=== PATIENT | female | born 1990 | race Caucasian/White ===

== ENCOUNTER 2021-02-21 01:29 | Emergency (ER) | payer BC ==
--- NOTE | 2021-02-21 01:40 | EDM.PDOC ---
ED HPI GENERAL MEDICAL PROBLEM - General Chief Complaint: Behavioral/Psych Stated Complaint: [facility] Time Seen by Provider: 02/21/21 01:35 - History of Present Illness INITIAL COMMENTS - FREE TEXT/NARRATIVE: 30-year-old female brought in by EMS after an intentional overdose. Patient apparently got in a argument with her after she had been drinking she then took unknown quantities of Seroquel Trintellix. Not much more history is obtainable the patient does not answer questions and is fairly well sedated at the time of arrival. Upon arrival her vital signs are stable she is oxygenating well. GCS 11. - Related Data Allergies Allergy/AdvReac Type Severity Reaction Status Date / Time No Known Allergies Allergy Verified 02/21/21 03:02 Home Meds: Home Meds . [Unable to Verify Home Med List] 02/21/21 [History] ED ROS GENERAL - Review of Systems Review Of Systems: See Below Reason Not Obtained: Patient will not follow commands or answer questions ED EXAM, GENERAL - Physical Exam Exam: See Below Exam Limited By: Intoxication General Appearance: Lethargic (Patient awakens but falls right back to sleep and takes a little bit of effort to get her to wake up GCS 11.) Eye Exam: Bilateral Eye: Normal Inspection, PERRL Ears: Normal External Exam, Normal Canal, Hearing Grossly Normal, Normal TMs Throat/Mouth: Normal Inspection, Normal Lips, Normal Gums, Normal Oropharynx (Gag reflex appears intact), No Airway Compromise, Other (Mucous membrane appears dry) Head: Atraumatic, Normocephalic Neck: Normal Inspection, Supple. No: Lymphadenopathy (L), Lymphadenopathy (R) Respiratory/Chest: No Respiratory Distress, Lungs Clear, Normal Breath Sounds Cardiovascular: Normal Peripheral Pulses, Regular Rate, Rhythm, No Edema GI/Abdominal: Normal Bowel Sounds, Soft, Non-Tender (No obvious tenderness) Extremities: Normal Inspection, No Pedal Edema #1 Interpretation EKG Date: 02/21/21 Time: 01:35 Rhythm: NSR Rate (Beats/Min): 62 [place]: Normal P-Wave: Present QRS: Normal ST-T: Other (Near isoelectric T waves in the inferior leads) QT: Normal Comparison: NA - No Prior EKG EKG Interpretation Comments: Borderline EKG #2 Interpretation EKG Date: 02/21/21 Time: 03:45 Rhythm: Other (Wide-complex tachycardia) Rate (Beats/Min): 152 P-Wave: Absent (Most likely in T wave) QRS: Wide (Suspect aberrant conduction V tach not excluded) ST-T: Other (Disconcordant change) QT: Prolonged Comparison: Change From Previous EKG (Change from earlier this morning she has developed a regular wide-complex tachycardia) EKG Interpretation Comments: Abnormal EKG #3 Interpretation EKG Date: 02/21/21 Time: 04:19 Rhythm: NSR Rate (Beats/Min): 82 [place]: LAD-Left [place] Deviation P-Wave: Present QRS: Wide (Aberrent conduction likely) ST-T: Other (Disconcordant changes) Comparison: Change From Previous EKG (Rate has slowed from #2 obvious sinus rhythm) EKG Interpretation Comments: Abnormal #4 Interpretation EKG Date: 02/21/21 Time: 06:45 (Following 2 Amps of bicarb) Rhythm: NSR Rate (Beats/Min): 96 [place]: LAD-Left [place] Deviation P-Wave: Present QRS: Wide (No improvement in wide-complex with bicarb) ST-T: Other (Disconcordant changes) ID/PQ Interval: Prolonged Comparison: No Change (No significant changes with #3) EKG Interpretation Comments: Abnormal Course - Vital Signs Last Recorded V/S: Last Vital Signs Temp 36.6 C 02/21/21 01:46 Pulse 66 02/21/21 01:46 Resp 16 02/21/21 01:46 BP 110/62 02/21/21 01:46 Pulse Ox 96 02/21/21 01:46 - Orders/Labs/Meds Orders: Active Orders 24 hr Category Date Time Status Head wo Cont [CT] Stat Exams 02/21/21 05:31 Taken Labs: Laboratory Tests 02/21/21 02/21/21 02/21/21 Range/Units 01:38 01:38 01:38 WBC (3.98-10.04) K/mm3 RBC (3.98-5.22) M/mm3 Hgb (11.2-15.7) gm/dl Hct (34.1-44.9) % MCV (79.4-94.8) fl MCH (25.6-32.2) pg MCHC (32.2-35.5) g/dl RDW Std Deviation (36.4-46.3) fL Plt Count (182-369) K/mm3 MPV (9.4-12.3) fl Neut % (Auto) (34.0-71.1) % Lymph % (Auto) (19.3-51.7) % [place] % (Auto) (4.7-12.5) % Eos % (Auto) (0.7-5.8) Baso % (Auto) (0.1-1.2) % Neut # (Auto) (1.56-6.13) K/mm3 Lymph # (Auto) (1.18-3.74) K/mm3 [place] # (Auto) (0.24-0.36) K/mm3 Eos # (Auto) (0.04-0.36) K/mm3 Baso # (Auto) (0.01-0.08) K/mm3 PT (9.7-12.0) SECONDS INR Puncture Site ABG pH (7.35-7.45) ABG pCO2 (35.0-45.0) mmHg ABG pO2 (80.0-100.0) mmHg ABG HCO3 (22.0-26.0) meq/L ABG O2 Saturation (96.0-97.0) % ABG Base Excess (-2-2.0) A-a Gradient mmHg O2 Delivery Device FiO2 (21.00-100.00) % Sodium (136-145) mEq/L Potassium (3.5-5.1) mEq/L Chloride (98-107) mEq/L Carbon Dioxide (21-32) mEq/L Anion Gap (5-15) BUN (7-18) mg/dL Creatinine (0.55-1.02) mg/dL Est Cr Clr Drug Dosing Estimated GFR (MDRD) (>60) mL/min BUN/Creatinine Ratio (14-18) Glucose (70-99) mg/dL Calcium (8.5-10.1) mg/dL Magnesium (1.8-2.4) mg/dL Total Bilirubin (0.2-1.0) mg/dL AST (15-37) U/L ALT (14-59) U/L Alkaline Phosphatase (46-116) U/L Troponin I (0.00-0.056) ng/mL Total Protein (6.4-8.2) g/dl Albumin (3.4-5.0) g/dl Globulin gm/dL Albumin/Globulin Ratio (1-2) TSH 3rd Generation (0.358-3.74) uIU/mL Urine Color Yellow (Yellow) Urine Appearance Slt cloudy H (Clear) Urine pH 6.0 (5.0-8.0) Ur Specific [place] > or = 1.030 (1.005-1.030) Urine Protein 3+ H (Negative) Urine Glucose (UA) Negative (Negative) Urine Ketones 1+ H (Negative) Urine Occult Blood Negative (Negative) Urine Nitrite Negative (Negative) Urine Bilirubin Negative (Negative) Urine Urobilinogen 0.2 (0.2-1.0) Ur Leukocyte Esterase Negative (Negative) U Hyaline Cast (Auto) 20-30 H (0-5) /lpf Urine RBC 0-5 (0-5) /hpf Urine WBC 5-10 H (0-5) /hpf Ur Squamous Epith Cells 0-5 (0-5) /hpf Urine Bacteria Few (FEW) /hpf Fine Granular Casts 40-50 H (0-5) /lpf Urine Mucus Few (FEW) /hpf Urine HCG, Qual Negative (NEGATIVE) Salicylates (2.8-20) mg/dL Urine Opiates Screen Negative (LJSRXS=188) Ur Buprenorphine Scrn Negative (CUTOFF=10) Ur Oxycodone Screen Negative (XQA0XO=050) Urine Methadone Screen Negative (LSPIVC=041) Ur Propoxyphene Screen Negative (YGXSQK=989) Acetaminophen (10-30) ug/mL Ur Barbiturates Screen Negative (TGIOPA=053) Ur Tricyclics Screen Presumptive positive H (OEKXRI=651) Ur Phencyclidine Scrn Negative (CUTOFF=25) Ur Amphetamine Screen Negative (GLUUDM=293) U Methamphetamines Scrn Negative (SWLLUA=412) U Benzodiazepines Scrn Negative (GLLUXL=929) U Cocaine Metab Screen Negative (NGVSJA=054) U Marijuana (THC) Screen Negative (CUTOFF=50) Ethyl Alcohol (0.00) gm% SARS-CoV-2 RNA (ALINA) (NEGATIVE) 02/21/21 02/21/21 02/21/21 Range/Units 01:38 01:57 01:57 WBC (3.98-10.04) K/mm3 RBC (3.98-5.22) M/mm3 Hgb (11.2-15.7) gm/dl Hct (34.1-44.9) % MCV (79.4-94.8) fl MCH (25.6-32.2) pg MCHC (32.2-35.5) g/dl RDW Std Deviation (36.4-46.3) fL Plt Count (182-369) K/mm3 MPV (9.4-12.3) fl Neut % (Auto) (34.0-71.1) % Lymph % (Auto) (19.3-51.7) % [place] % (Auto) (4.7-12.5) % Eos % (Auto) (0.7-5.8) Baso % (Auto) (0.1-1.2) % Neut # (Auto) (1.56-6.13) K/mm3 Lymph # (Auto) (1.18-3.74) K/mm3 [place] # (Auto) (0.24-0.36) K/mm3 Eos # (Auto) (0.04-0.36) K/mm3 Baso # (Auto) (0.01-0.08) K/mm3 PT 10.3 (9.7-12.0) SECONDS INR 0.93 Puncture Site ABG pH (7.35-7.45) ABG pCO2 (35.0-45.0) mmHg ABG pO2 (80.0-100.0) mmHg ABG HCO3 (22.0-26.0) meq/L ABG O2 Saturation (96.0-97.0) % ABG Base Excess (-2-2.0) A-a Gradient mmHg O2 Delivery Device FiO2 (21.00-100.00) % Sodium 139 (136-145) mEq/L Potassium 2.8 L (3.5-5.1) mEq/L Chloride 103 (98-107) mEq/L Carbon Dioxide 23 (21-32) mEq/L Anion Gap 15.8 H (5-15) BUN 15 (7-18) mg/dL Creatinine 1.0 (0.55-1.02) mg/dL Est Cr Clr Drug Dosing TNP Estimated GFR (MDRD) > 60 (>60) mL/min BUN/Creatinine Ratio 15.0 (14-18) Glucose 132 H (70-99) mg/dL Calcium 8.8 (8.5-10.1) mg/dL Magnesium 1.8 (1.8-2.4) mg/dL Total Bilirubin 0.2 (0.2-1.0) mg/dL AST 16 (15-37) U/L ALT 26 (14-59) U/L Alkaline Phosphatase 43 L (46-116) U/L Troponin I (0.00-0.056) ng/mL Total Protein 7.0 (6.4-8.2) g/dl Albumin 4.0 (3.4-5.0) g/dl Globulin 3.0 gm/dL Albumin/Globulin Ratio 1.3 (1-2) TSH 3rd Generation 1.163 (0.358-3.74) uIU/mL Urine Color (Yellow) Urine Appearance (Clear) Urine pH (5.0-8.0) Ur Specific [place] (1.005-1.030) Urine Protein (Negative) Urine Glucose (UA) (Negative) Urine Ketones (Negative) Urine Occult Blood (Negative) Urine Nitrite (Negative) Urine Bilirubin (Negative) Urine Urobilinogen (0.2-1.0) Ur Leukocyte Esterase (Negative) U Hyaline Cast (Auto) (0-5) /lpf Urine RBC (0-5) /hpf Urine WBC (0-5) /hpf Ur Squamous Epith Cells (0-5) /hpf Urine Bacteria (FEW) /hpf Fine Granular Casts (0-5) /lpf Urine Mucus (FEW) /hpf Urine HCG, Qual (NEGATIVE) Salicylates (2.8-20) mg/dL Urine Opiates Screen (OIFFXQ=876) Ur Buprenorphine Scrn (CUTOFF=10) Ur Oxycodone Screen (BNA5WQ=023) Urine Methadone Screen (UEURTX=812) Ur Propoxyphene Screen (YDHHOI=546) Acetaminophen 0 L (10-30) ug/mL Ur Barbiturates Screen (ERNIXF=672) Ur Tricyclics Screen (RYQZSB=145) Ur Phencyclidine Scrn (CUTOFF=25) Ur Amphetamine Screen (YUVLOP=996) U Methamphetamines Scrn (BRKPNM=482) U Benzodiazepines Scrn (IGACGI=122) U Cocaine Metab Screen (OEERSS=811) U Marijuana (THC) Screen (CUTOFF=50) Ethyl Alcohol 0.09 (0.00) gm% SARS-CoV-2 RNA (LAINA) Negative (NEGATIVE) 02/21/21 02/21/21 02/21/21 Range/Units 01:57 01:57 02:38 WBC 6.70 (3.98-10.04) K/mm3 RBC 4.57 (3.98-5.22) M/mm3 Hgb 13.9 (11.2-15.7) gm/dl Hct 40.9 (34.1-44.9) % MCV 89.5 (79.4-94.8) fl MCH 30.4 (25.6-32.2) pg MCHC 34.0 (32.2-35.5) g/dl RDW Std Deviation 40.8 (36.4-46.3) fL Plt Count 208 (182-369) K/mm3 MPV 10.2 (9.4-12.3) fl Neut % (Auto) 76.0 H (34.0-71.1) % Lymph % (Auto) 18.2 L (19.3-51.7) % [place] % (Auto) 3.4 L (4.7-12.5) % Eos % (Auto) 1.6 (0.7-5.8) Baso % (Auto) 0.7 (0.1-1.2) % Neut # (Auto) 5.08 (1.56-6.13) K/mm3 Lymph # (Auto) 1.22 (1.18-3.74) K/mm3 [place] # (Auto) 0.23 L (0.24-0.36) K/mm3 Eos # (Auto) 0.11 (0.04-0.36) K/mm3 Baso # (Auto) 0.05 (0.01-0.08) K/mm3 PT (9.7-12.0) SECONDS INR Puncture Site Lt radial ABG pH 7.35 (7.35-7.45) ABG pCO2 36.3 (35.0-45.0) mmHg ABG pO2 78.0 L (80.0-100.0) mmHg ABG HCO3 19.5 L (22.0-26.0) meq/L ABG O2 Saturation 95.8 L (96.0-97.0) % ABG Base Excess -4.9 L (-2-2.0) A-a Gradient 26 mmHg O2 Delivery Device Room air FiO2 21.00 (21.00-100.00) % Sodium (136-145) mEq/L Potassium (3.5-5.1) mEq/L Chloride (98-107) mEq/L Carbon Dioxide (21-32) mEq/L Anion Gap (5-15) BUN (7-18) mg/dL Creatinine (0.55-1.02) mg/dL Est Cr Clr Drug Dosing Estimated GFR (MDRD) (>60) mL/min BUN/Creatinine Ratio (14-18) Glucose (70-99) mg/dL Calcium (8.5-10.1) mg/dL Magnesium (1.8-2.4) mg/dL Total Bilirubin (0.2-1.0) mg/dL AST (15-37) U/L ALT (14-59) U/L Alkaline Phosphatase (46-116) U/L Troponin I (0.00-0.056) ng/mL Total Protein (6.4-8.2) g/dl Albumin (3.4-5.0) g/dl Globulin gm/dL Albumin/Globulin Ratio (1-2) TSH 3rd Generation (0.358-3.74) uIU/mL Urine Color (Yellow) Urine Appearance (Clear) Urine pH (5.0-8.0) Ur Specific [place] (1.005-1.030) Urine Protein (Negative) Urine Glucose (UA) (Negative) Urine Ketones (Negative) Urine Occult Blood (Negative) Urine Nitrite (Negative) Urine Bilirubin (Negative) Urine Urobilinogen (0.2-1.0) Ur Leukocyte Esterase (Negative) U Hyaline Cast (Auto) (0-5) /lpf Urine RBC (0-5) /hpf Urine WBC (0-5) /hpf Ur Squamous Epith Cells (0-5) /hpf Urine Bacteria (FEW) /hpf Fine Granular Casts (0-5) /lpf Urine Mucus (FEW) /hpf Urine HCG, Qual (NEGATIVE) Salicylates 2.7 L (2.8-20) mg/dL Urine Opiates Screen (EDJNPJ=541) Ur Buprenorphine Scrn (CUTOFF=10) Ur Oxycodone Screen (QZU5XP=758) Urine Methadone Screen (EHHHLV=780) Ur Propoxyphene Screen (HHTVCZ=608) Acetaminophen (10-30) ug/mL Ur Barbiturates Screen (IDTJSL=197) Ur Tricyclics Screen (ZHIAFQ=207) Ur Phencyclidine Scrn (CUTOFF=25) Ur Amphetamine Screen (QHMQNK=788) U Methamphetamines Scrn (FSHPDG=739) U Benzodiazepines Scrn (GGNREI=381) U Cocaine Metab Screen (XDLLFB=478) U Marijuana (THC) Screen (CUTOFF=50) Ethyl Alcohol (0.00) gm% SARS-CoV-2 RNA (ALINA) (NEGATIVE) 02/21/21 02/21/21 02/21/21 Range/Units 04:35 04:35 06:00 WBC (3.98-10.04) K/mm3 RBC (3.98-5.22) M/mm3 Hgb (11.2-15.7) gm/dl Hct (34.1-44.9) % MCV (79.4-94.8) fl MCH (25.6-32.2) pg MCHC (32.2-35.5) g/dl RDW Std Deviation (36.4-46.3) fL Plt Count (182-369) K/mm3 MPV (9.4-12.3) fl Neut % (Auto) (34.0-71.1) % Lymph % (Auto) (19.3-51.7) % [place] % (Auto) (4.7-12.5) % Eos % (Auto) (0.7-5.8) Baso % (Auto) (0.1-1.2) % Neut # (Auto) (1.56-6.13) K/mm3 Lymph # (Auto) (1.18-3.74) K/mm3 [place] # (Auto) (0.24-0.36) K/mm3 Eos # (Auto) (0.04-0.36) K/mm3 Baso # (Auto) (0.01-0.08) K/mm3 PT (9.7-12.0) SECONDS INR Puncture Site ABG pH (7.35-7.45) ABG pCO2 (35.0-45.0) mmHg ABG pO2 (80.0-100.0) mmHg ABG HCO3 (22.0-26.0) meq/L ABG O2 Saturation (96.0-97.0) % ABG Base Excess (-2-2.0) A-a Gradient mmHg O2 Delivery Device FiO2 (21.00-100.00) % Sodium 139 139 (136-145) mEq/L Potassium 3.6 4.1 (3.5-5.1) mEq/L Chloride 105 106 (98-107) mEq/L Carbon Dioxide 21 22 (21-32) mEq/L Anion Gap 16.6 H 15.1 H (5-15) BUN 13 12 (7-18) mg/dL Creatinine 0.9 0.9 (0.55-1.02) mg/dL Est Cr Clr Drug Dosing TNP TNP Estimated GFR (MDRD) > 60 > 60 (>60) mL/min BUN/Creatinine Ratio 14.4 13.3 L (14-18) Glucose 146 H 116 H (70-99) mg/dL Calcium 8.4 L 8.9 (8.5-10.1) mg/dL Magnesium (1.8-2.4) mg/dL Total Bilirubin (0.2-1.0) mg/dL AST (15-37) U/L ALT (14-59) U/L Alkaline Phosphatase (46-116) U/L Troponin I < 0.017 (0.00-0.056) ng/mL Total Protein (6.4-8.2) g/dl Albumin (3.4-5.0) g/dl Globulin gm/dL Albumin/Globulin Ratio (1-2) TSH 3rd Generation (0.358-3.74) uIU/mL Urine Color (Yellow) Urine Appearance (Clear) Urine pH (5.0-8.0) Ur Specific [place] (1.005-1.030) Urine Protein (Negative) Urine Glucose (UA) (Negative) Urine Ketones (Negative) Urine Occult Blood (Negative) Urine Nitrite (Negative) Urine Bilirubin (Negative) Urine Urobilinogen (0.2-1.0) Ur Leukocyte Esterase (Negative) U Hyaline Cast (Auto) (0-5) /lpf Urine RBC (0-5) /hpf Urine WBC (0-5) /hpf Ur Squamous Epith Cells (0-5) /hpf Urine Bacteria (FEW) /hpf Fine Granular Casts (0-5) /lpf Urine Mucus (FEW) /hpf Urine HCG, Qual (NEGATIVE) Salicylates (2.8-20) mg/dL Urine Opiates Screen (ZTBVCB=051) Ur Buprenorphine Scrn (CUTOFF=10) Ur Oxycodone Screen (RHO9LW=354) Urine Methadone Screen (HYGWTN=309) Ur Propoxyphene Screen (REGTDT=785) Acetaminophen (10-30) ug/mL Ur Barbiturates Screen (VVIQOD=308) Ur Tricyclics Screen (SNIHUT=556) Ur Phencyclidine Scrn (CUTOFF=25) Ur Amphetamine Screen (BMJFVT=370) U Methamphetamines Scrn (RRMJOD=032) U Benzodiazepines Scrn (OSIHQB=999) U Cocaine Metab Screen (LXVSGI=227) U Marijuana (THC) Screen (CUTOFF=50) Ethyl Alcohol (0.00) gm% SARS-CoV-2 RNA (ALINA) (NEGATIVE) 02/21/21 Range/Units 06:00 WBC (3.98-10.04) K/mm3 RBC (3.98-5.22) M/mm3 Hgb (11.2-15.7) gm/dl Hct (34.1-44.9) % MCV (79.4-94.8) fl MCH (25.6-32.2) pg MCHC (32.2-35.5) g/dl RDW Std Deviation (36.4-46.3) fL Plt Count (182-369) K/mm3 MPV (9.4-12.3) fl Neut % (Auto) (34.0-71.1) % Lymph % (Auto) (19.3-51.7) % [place] % (Auto) (4.7-12.5) % Eos % (Auto) (0.7-5.8) Baso % (Auto) (0.1-1.2) % Neut # (Auto) (1.56-6.13) K/mm3 Lymph # (Auto) (1.18-3.74) K/mm3 [place] # (Auto) (0.24-0.36) K/mm3 Eos # (Auto) (0.04-0.36) K/mm3 Baso # (Auto) (0.01-0.08) K/mm3 PT (9.7-12.0) SECONDS INR Puncture Site ABG pH (7.35-7.45) ABG pCO2 (35.0-45.0) mmHg ABG pO2 (80.0-100.0) mmHg ABG HCO3 (22.0-26.0) meq/L ABG O2 Saturation (96.0-97.0) % ABG Base Excess (-2-2.0) A-a Gradient mmHg O2 Delivery Device FiO2 (21.00-100.00) % Sodium (136-145) mEq/L Potassium (3.5-5.1) mEq/L Chloride (98-107) mEq/L Carbon Dioxide (21-32) mEq/L Anion Gap (5-15) BUN (7-18) mg/dL Creatinine (0.55-1.02) mg/dL Est Cr Clr Drug Dosing Estimated GFR (MDRD) (>60) mL/min BUN/Creatinine Ratio (14-18) Glucose (70-99) mg/dL Calcium (8.5-10.1) mg/dL Magnesium (1.8-2.4) mg/dL Total Bilirubin (0.2-1.0) mg/dL AST (15-37) U/L ALT (14-59) U/L Alkaline Phosphatase (46-116) U/L Troponin I (0.00-0.056) ng/mL Total Protein (6.4-8.2) g/dl Albumin (3.4-5.0) g/dl Globulin gm/dL Albumin/Globulin Ratio (1-2) TSH 3rd Generation (0.358-3.74) uIU/mL Urine Color (Yellow) Urine Appearance (Clear) Urine pH (5.0-8.0) Ur Specific [place] (1.005-1.030) Urine Protein (Negative) Urine Glucose (UA) (Negative) Urine Ketones (Negative) Urine Occult Blood (Negative) Urine Nitrite (Negative) Urine Bilirubin (Negative) Urine Urobilinogen (0.2-1.0) Ur Leukocyte Esterase (Negative) U Hyaline Cast (Auto) (0-5) /lpf Urine RBC (0-5) /hpf Urine WBC (0-5) /hpf Ur Squamous Epith Cells (0-5) /hpf Urine Bacteria (FEW) /hpf Fine Granular Casts (0-5) /lpf Urine Mucus (FEW) /hpf Urine HCG, Qual (NEGATIVE) Salicylates 2.6 L (2.8-20) mg/dL Urine Opiates Screen (BZRFUR=200) Ur Buprenorphine Scrn (CUTOFF=10) Ur Oxycodone Screen (HFM1PT=807) Urine Methadone Screen (KFNDDF=425) Ur Propoxyphene Screen (UTTPLN=401) Acetaminophen (10-30) ug/mL Ur Barbiturates Screen (QAXEOW=606) Ur Tricyclics Screen (RDJYPB=174) Ur Phencyclidine Scrn (CUTOFF=25) Ur Amphetamine Screen (MRJLMC=730) U Methamphetamines Scrn (LXHELX=313) U Benzodiazepines Scrn (VKBXXB=281) U Cocaine Metab Screen (EHBCYM=832) U Marijuana (THC) Screen (CUTOFF=50) Ethyl Alcohol (0.00) gm% SARS-CoV-2 RNA (ALINA) (NEGATIVE) Meds: Medications Discontinued Medications Generic Name Dose Route Start Last Admin Trade Name Freq PRN Reason Stop Dose Admin Calcium Gluconate Confirm 02/21/21 04:47 02/21/21 04:55 Calcium Gluconate 10% 1 Gm/10 Ml Sdv Administered 02/21/21 04:48 Not Given Dose 2 gm .ROUTE .STK-MED ONE Calcium Gluconate 1 gm 02/21/21 04:55 02/21/21 04:50 Calcium Gluconate 10% 1 Gm/10 Ml Sdv IVPUSH 02/21/21 04:56 1 gm ONETIME ONE Administration Lactated Ringer's 1,000 mls @ 999 mls/hr 02/21/21 02:05 02/21/21 02:06 Ringers, Lactated IV 02/21/21 03:05 999 mls/hr .BOLUS ONE Administration Potassium Chloride 10 meq/ 100 mls @ 100 mls/hr 02/21/21 03:00 02/21/21 07:01 Premix IV 02/21/21 06:59 Not Given Q1H JEYSON Magnesium Sulfate 2 gm/ Premix 50 mls @ 25 mls/hr 02/21/21 02:52 02/21/21 03:02 IV 02/21/21 04:51 25 mls/hr ONETIME ONE Administration Lactated Ringer's 1,000 mls @ 150 mls/hr 02/21/21 03:15 02/21/21 04:05 Ringers, Lactated IV 150 mls/hr ASDIRECTED JEYSON Administration Magnesium Sulfate 2 gm/ Premix 50 mls @ 25 mls/hr 02/21/21 04:14 02/21/21 04:18 IV 02/21/21 06:13 25 mls/hr ONETIME ONE Administration Lactated Ringer's 1,000 mls @ 150 mls/hr 02/21/21 04:30 02/21/21 04:46 Ringers, Lactated IV 0 mls/hr ASDIRECTED JEYSON Infusion Potassium Chloride/Sodium Chloride 1,000 mls @ 150 mls/hr 02/21/21 07:00 02/21/21 06:59 Normal Saline With 20 Meq Kcl IV 150 mls/hr ASDIRECTED JEYSON Administration Sodium Bicarbonate 50 meq 02/21/21 06:34 02/21/21 06:38 Sodium Bicarbonate 8.4% 50 Meq/50 Ml Syringe IVPUSH 02/21/21 06:35 50 meq ONETIME ONE Administration Sodium Bicarbonate 50 meq 02/21/21 06:41 02/21/21 06:44 Sodium Bicarbonate 8.4% 50 Meq/50 Ml Syringe IVPUSH 02/21/21 06:42 50 meq ONETIME ONE Administration Sodium Bicarbonate Confirm 02/21/21 06:41 02/21/21 07:00 Sodium Bicarbonate 8.4% 50 Meq/50 Ml Sdv Administered 02/21/21 06:42 Not Given Dose 50 meq [facility]essments/Exams Free Text/Narrative Re-Assessment/Exam: 02/21/21 03:12 Labs reviewed she is got a potassium of 2.8 she has been started on IV potassium supplementation is she is in no shape to be swallowing pills. Magnesium is low at 1.8 we will give her a couple grams of mag. Urine drug screen shows some detectable salicylates I will recheck a level at 6:00 urine drug screen also came back positive for tricyclic antidepressants this is probably a false positive because the patient is on Seroquel. The patient had a 23-second run of V. tach we will watch this closely recheck QT. 02/21/21 05:04 Patient's potassium was 3.6 at this time. We also learned that the patient is taking Lamictal. The patient developed a wide-complex tachycardia when her rate would slow below about 105 she was demonstrating obvious P waves. Updated poison control their recommendation was to increase the potassium to 2 lines and increase the magnesium to 4 g and to increase the rate equivalent to 4 g over 15 minutes. The patient then developed peaked T waves on telemetry we gave her a amp of calcium gluconate this seemed to improve we were able to get an EKG with her rate at 95 clearly had P waves this is when the potassium recheck showed 3.6 her peak T waves look much better on the EKG than they did on the telemetry. We did send the EKGs for review of Dr. Warner on-call retail attendant at poison control. 02/21/21 05:43 Was reviewed with 1 call at [facility] in [place] who believes they have a bed available in the ICU or lower level of care in the PCU if more appropriate. Case was discussed with Dr. Mejia, in service education teacher we reviewed the case with Dr. Simmons in the emergency room who accepts. We will check a head CT prior to transfer this is happening at this time. 02/21/21 06:[address] report I do not see any acute changes on it. Patient awakens easily at this time but then falls right back to sleep 02/21/21 06:[address] report is no acute changes 02/21/21 06:[address] Simmons at [facility]' emergency room in [place] she would like for us to try an amp of bicarb to see if this helps narrow up the QRS. We will give this a try. 02/21/21 06:52 I did give the patient 2 Amps of sodium bicarb and did not see any improvement in her QRS fourth EKG was done which showed a QRS of 167 no significant change from [address] Simmons on this for the transfer started on NS of 20 mEq K 150 cc an hour. Departure - Departure Time of Disposition: 05:45 Disposition: DC/Tfer to Acute Hospital 02 Clinical Impression: Suicide attempt by multiple drug overdose, Hypokalemia, Hypomagnesemia, Wide- complex tachycardia - Discharge Information Referrals: Quita Smith NP [Primary Care Provider] - Forms: ED Department Discharge Sepsis Event Note (ED) - Focused Exam Vital Signs: Vital Signs Temp Pulse Resp BP Pulse Ox 02/21/21 01:46 36.6 C 66 16 110/62 96 - My Orders Last 24 Hours: My Active Orders 02/21/21 05:31 Head wo Cont [CT] Stat - Assessment/Plan Last 24 Hours: My Active Orders 02/21/21 05:31 Head wo Cont [CT] Stat
[2021-02-21] MEDS ORDERED: Lactated Ringers 1,000 ML IV ONE (02:05)
[2021-02-21 02:45] LABS: ACETAMINOPHEN 0 ug/mL (10-30)
[2021-02-21] MEDS ORDERED: Magnesium Sulfate/Water 2 GM in Premix Bag 1 BAG IV ONE ×2 (02:52→04:14)
[2021-02-21] MEDS: Potassium Chloride 10 MEQ in Premix Bag 1 BAG IV SCH ×4 (03:02→07:01)
[2021-02-21] MEDS ORDERED: Lactated Ringers 1,000 ML IV SCH ×2 (03:15→04:30)
[2021-02-21] MEDS ORDERED: Calcium Gluconate 10% 1 GM/10 ML SDV ONE (04:47)
[2021-02-21] MEDS ORDERED: Calcium Gluconate 10% 1 GM/10 ML SDV IVPUSH ONE (04:55)
[2021-02-21] MEDS ORDERED: Sodium Bicarbonate 8.4% 50 MEQ/50 ML Syringe IVPUSH ONE ×2 (06:34→06:41)
[2021-02-21] MEDS ORDERED: Sodium Bicarbonate 8.4% 50 MEQ/50 ML SDV ONE (06:41)
[2021-02-21] MEDS ORDERED: NS + KCl 20mEq/L 1,000 ML IV SCH (07:00)
--- NOTE | 2021-02-21 09:41 | CT ---
Head CT Technique: Multiple axial sections through the brain were obtained. Intravenous contrast was not utilized. Reconstructed coronal and sagittal images were obtained. Comparison: No prior intracranial imaging is available. Findings: Ventricles along with basal cisterns and sulci over the convexities are within normal limits for the patient's age. No abnormal parenchymal densities are seen. No evidence of intracranial hemorrhage is seen. No midline shift or mass-effect is seen. Bone window settings were reviewed. Visualized mastoid sinuses are clear. Mild mucosal thickening is seen within the ethmoid sinuses. No acute calvarial abnormality is appreciated. Impression: 1. Minimal sinus findings most likely chronic. 2. Nothing acute is seen on noncontrast head CT study. Diagnostic code #2 I agree with preliminary report from [facility], finalized on 02/21/21, 6:59 AM [employer], code 1
== END 2021-02-21 07:00 ==
LOC: JD.ED 01:29
DX: T43.592A Poisoning by other antipsychotics and neuroleptics, intentional self-harm, initial encounter (principal); E87.6 Hypokalemia; E83.42 Hypomagnesemia; R00.0 Tachycardia, unspecified; R94.31 Abnormal electrocardiogram [ECG] [EKG]; Z20.822 Contact with and (suspected) exposure to COVID-19
CPT/HCPCS: 36415; 36600; 70450; 80048; 80053; 80143; 80179; 80306; 80307; 81001; 81025; 82803; 83735; 84443; 84484; 85025; 85610; 87635; 93005; 96365; 96366; 96367; 96368; 96375; 99285; J0610; J3475; J3480; J7120; 93010; U0002